=== PATIENT | male | born 1970 | race Hispanic/Latino ===

== ENCOUNTER 2021-06-24 18:44 | Emergency (ER) | payer BC ==
[2021-06-24 19:22] LABS: #Basophils 0.1 thou/uL (0.0-0.2); #Lymphocytes 1.6 thou/uL (1.20-3.40); #Neutrophils 11.7 thou/uL (1.40-6.50); %Basophils 0.6 % (0.0-1.0); %Lymphocytes 11.2 % (21.0-51.0); %Neutrophils 81.3 % (42.0-75.0); Hemoglobin 14.8 g/dL (14.0-18.0); Mean Corpuscular HGB CONC 31.2 g/dL (32.0-36.0); Mean Corpuscular Hemoglobin 29.3 pg (27.0-31.0); Mean Corpuscular Volume 93.9 fL (78.0-98.0); Mean Platelet Volume 7.1 fL (7.4-10.4); Platelet Count 196 thou/uL (130-400); RBC Distribution Width 12.4 % (11.5-14.5); Red Blood Cell (RBC) Count 5.07 mill/uL (4.70-6.10); White Blood Cell (WBC) Count 14.4 thou/uL (4.8-10.8)
[2021-06-24] MEDS ORDERED: Sodium Chloride 0.9% 1,000 ML ONE (19:22)
[2021-06-24] MEDS ORDERED: Acetaminophen 500 MG TAB ONE (19:22)
[2021-06-24] MEDS ORDERED: cefTRIAXone\\ROCEPHIN 1 GM VIAL ONE (19:42)
[2021-06-24] MEDS ORDERED: Sodium Chloride 0.9% 100 ML ONE (19:42)
[2021-06-24 19:44] LABS: ALT (SGPT) 34 U/L (8-55); AST (SGOT) 26 U/L (5-34); Albumin 4.3 g/dL (3.5-5.0); Alkaline Phosphatase 84 U/L (40-110); Anion Gap 13 mmol/L (10-20); BUN (Urea Nitrogen) 11 mg/dL (8.9-20.6); Bilirubin, Total 1.2 mg/dL (0.2-1.2); Calc. Creatinine Clearance 0 mL/min (70-130); Calcium 9.1 mg/dL (7.8-10.44); Carbon Dioxide 23 mmol/L (22-29); Chloride 99 mmol/L (98-107); Globulin 3.9 g/dL (2.4-3.5); Glucose 121 mg/dL (70-105); Potassium 3.4 mmol/L (3.5-5.1); Protein, Total 8.2 g/dL (6.0-8.3); Sodium 132 mmol/L (136-145)
[2021-06-24 19:45] LABS: Bilirubin Negative (Negative); Blood, Urine Large (Negative); Glucose, Urine (Dipstick) Negative (Negative); Ketone, Urine 15 mg/dL (Negative); Leukocyte Trace (Negative); Nitrite Negative (Negative); Protein, Urine (Dipstick) > or equal to 300 mg/dL (Neg-Trace); Specific Gravity, Urine 1.025 (1.005-1.030)
[2021-06-24 19:50] LABS: Clarity Cloudy (Clear)
[2021-06-24 19:52] LABS: RBC/HPF Greater than 50 HPF (0-3); Squamous Epithelial 0-3 HPF (0-3)
== END 2021-06-24 20:26 | disposition home or self-care (01) ==
LOC: NAV ERS 18:44
DX: N39.0 Urinary tract infection, site not specified (principal); R31.9 Hematuria, unspecified
CPT/HCPCS: 80053; 81003; 81015; 83605; 85025; 87086; 96365; 96366; J0696; J3490; J7050